=== PATIENT | female | born 1990 | race Caucasian/White ===

== ENCOUNTER → 2017-09-09 | Outpatient (CLI) | payer OTHER ==
[~2017-09-09] MED LIST: CEPH500 PO; NAPR500; NAPR500 PO; OXYACE5T; PERM5TC TOP; SULTRIDS PO; TRAM50 PO
== END ==
LOC: LAB 11:18
DX: N76.0 Acute vaginitis (principal)
CPT/HCPCS: 87070; 87205

== ENCOUNTER → 2018-08-14 | Outpatient (CLI) | payer OTHER | LOC: LAB 09:30 → LAB SHORT 09:30 | DX: N76.0 Acute vaginitis (principal) | CPT/HCPCS: 87070; 87205 ==

== ENCOUNTER → 2018-11-28 | Outpatient (CLI) | payer OTHER | LOC: LAB SHORT 17:17 → LAB 17:17 | DX: N89.8 Other specified noninflammatory disorders of vagina (principal) | CPT/HCPCS: 87070; 87205 ==

== ENCOUNTER 2019-06-14 08:59 | Inpatient (IN) | payer OTHER ==
[~2019-06-14] VITALS: Ht 157.5 cm; Wt 88.7 kg
[2019-06-14 09:58] LABS: BASOPHILS ABSOLUTE AUTO 0.04 K/mm3 (0.00-0.23); BASOPHILS PERCENT AUTO 0 % (0-2); EOSINOPHILS PERCENT AUTO 1 % (0-6); Hematocrit 42.4 % (33.0-51.0); Hemoglobin 13.3 g/dL (11.5-16.0); IMMATURE GRAN ABSOLUTE AUTO 0.04 K/mm3 (0.00-0.10); IMMATURE GRAN PERCENT AUTO 0 % (0-1); LYMPHOCYTES ABSOLUTE AUTO 1.44 K/mm3 (0.84-5.20); LYMPHOCYTES PERCENT AUTO 11 % (21-46); MONOCYTES ABSOLUTE AUTO 0.93 K/mm3 (0.16-1.47); MONOCYTES PERCENT AUTO 7 % (4-13); Mean Corpuscular HGB 26.7 pg (26.0-34.0); Mean Corpuscular HGB Conc 31.4 g/dL (31.5-36.5); Mean Corpuscular Volume 85 fL (80-100); Mean Platelet Volume 10.4 fL (9.1-12.4); NEUTROPHILS ABSOLUTE AUTO 10.71 K/mm3 (1.96-9.15); NEUTROPHILS PERCENT AUTO 81 % (41-73); Platelet Count 252 K/mm3 (150-400); RDW Coefficient Variation 14.9 % (11.7-14.2); RDW Standard Deviation 45.8 fL (35.1-46.3); Red Blood Cell Count 4.98 M/mm3 (3.80-5.20); White Blood Cell Count 13.26 K/mm3 (4.00-11.30)
[2019-06-14 10:14] LABS: Alanine Aminotransfer (ALT/SGP 19 U/L (12-78); Albumin, Blood 3.3 g/dL (3.4-5.0); Albumin/Globulin Ratio 0.9 (0.8-1.8); Alk Phos 74 U/L (50-136); Anion Gap 6 mmol/L (6-16); Aspartate Aminotrans (AST/SGOT 12 U/L (12-37); Bilirubin, Total 0.6 mg/dL (0.1-1.0); Blood Urea Nitrogen 7 mg/dL (8-24); Bun/Creatinine Ratio 9.3 (12.0-20.0); CO2, Blood 26 mmol/L (21-32); Calcium, Blood 9.2 mg/dL (8.5-10.1); Chloride, Blood 108 mmol/L (98-108); Creatinine, Blood 0.75 mg/dL (0.40-1.00); Globulin, Blood 3.8 g/dL (2.2-4.0); Glomerular Filtration Rate >60 (60-); Glucose, Blood 92 mg/dL (70-99); Potassium, Blood 3.5 mmol/L (3.5-5.5); Sodium, Blood 140 mmol/L (136-145); Total Protein, Blood 7.1 g/dL (6.4-8.2)
[2019-06-14 10:22] LABS: Appearance, Urine Cloudy (Clear); Bilirubin, Urine Neg (Neg); Blood, Urine 5+ (Neg); Color, Urine Yellow (P-Yellow); Glucose Qualitative, Urine Neg (Neg); Ketones, Urine Neg (Neg); Leukocyte Esterase, Urine 3+ (Neg); Nitrite, Urine Pos (Neg); Protein, Urine 3+ (Neg); Urobilinogen, Urine NORM (Normal)
[2019-06-14 10:42] LABS: White Blood Cells, Urine TNTC /hpf (0-5)
[2019-06-14 10:43] LABS: Bacteria Many /hpf; Squamous Epithelial Cells Few /hpf (Few)
--- NOTE | 2019-06-14 14:29 | NUR ---
RECIEVED TELEPHONE REPORT FROM ED RN SINDHU. PER REPORT PT ALERT,ORIENTED AND INDEPENDENT. 28 YO FULL CODE WITH KIDNEY INFECTION. ABX GIVEN IN THE ED, THIRD BAG OF IVF INFUSING AT THIS TIME. AWAITING PT ARRIVAL ON MED FLOOR.
--- NOTE | 2019-06-14 15:00 | NUR ---
PT ARRIVED ON MED FLOOR WITH 1L NS. PT ALERT AND TALKING WITH STAFF RATES PAIN AT 1/10 AT THIS TIME. PER REPORT FROM ED RN SINDHU THIS IS THE THIRD LITER OF IVF PT WILL RECIEVE. NO S&S OF DISTRESS NOTED AT THIS TIME WILL CTM.
--- NOTE | 2019-06-14 18:04 | NUR ---
1730- ON ROUNDS PT WAS COMFORTABLE AND SLEEPING UNTIL THIS POINT. PT AWOKE WHEN STAFF ENTERED THE ROOM, BEGAN SHIVERING AND MOANING. FULL SET OF VITALS WERE OBTAINED SCORING A 6 ON THE VEWS SYSTEM. CALLED DR MONZON, PT HR 124, BP79/66, TEMP 102.8, PAIN RATED AT 6/10. NEW ORDERS RECIEVED FOR 1L FLUID BOLUS, OT DOSE OF TORADOL, INCREASED DAILY ABX DOSE, TYLENOL WAS GIVEN AND MAINTENENCE FLUIDS WERE INCREASED TO 150ML/HR. FIELD ACCOUNT DIRECTOR MEGAN NOTIFIED. VITALS RECHECK WILL BE DONE NOW.
--- NOTE | 2019-06-14 19:35 | NUR ---
SHIFT SUMMARY- PT RESP RATE ELEVATED, TEMP 103, PULSE 110. SPOKE TO DR MONZON ABOUT POSSIBLE TRANSFER TO PCU, PT STILL HAD HALF A LITER OF HER FLUID BOLUS TO GO. MEDICATED WITH TYLENOL AND IBUPROFEN WELL IV TORADOL. PT STATED THE PAIN IS BACK DOWN TO A 1/10 AT THIS TIME. BEDSIDE REPORT COMPLETED. AFTER BEDSIDE REPORT ANOTHER CARE ROUNDING WAS DONE. PT SATED SHE WAS FEELING "SO HOT", ALL CLOTHING HAD BEEN REMOVED AT THIS POINT EXCEPT FOR THE GOWN AND A SHEET. ROOM TEMP WAS DOWN WELL. PLACED A COOL CLOTH ON THE PT HEAD AND PLACED ICE PACKS IN HER ARMPITS. SHORTLY AFTER THAT THE PT NEEDED TO GET UP TO USE THE BATHROOM. ACADEMIC REGISTRAR VITALS DONE AFTER THIS.
--- NOTE | 2019-06-14 19:45 | NUR ---
SPOKE TO DR MONZON SEVERAL TIMES T/O THE END OF THE SHIFT WHEN PT VEWS SCORES WERE 5 6 AND 7. AWARE INTERVENTIONS HAVE BEEN IMPLEMENTED. WANTS STAFF TO CONTINUE TO MONITOR REQUESTED TRANSFER TO PCU NO ORDER AT THIS TIME. PT RESP RATE HAS REDUCED TO 16 BPM TEMP IS DOWN TO 99.4 WITH ICE PACKS IN THE ARM PITS AND COOL CLOTH ON THE FOREHEAD. PT SAID SHE HAD A SHARP PAIN IN HER FLANK WHEN SHE GOT UP TO THE BATHROOM. CONCERN THAT THE PT WILL DECLINE NOW THAT FLUID BOLUS IS COMPLETE WHEN THE TORADOL, TYLENOL AND IBUPROFEN WEAR OFF. PASSED ON TO NIGHT RN. SPOKE TO NIGHT CHARGE PT HAS AN INCREASED NEED FOR MONITORING, SAUSAGE GRINDER AWARE.
--- NOTE | 2019-06-14 20:22 | NUR ---
REPORT TO DR JARA ABOUT PATIENT CHANGE IN CONDITION PER DAY RN (SEE NOTE). VIEW SCORES DOWN FROM SEVEN TO ONE. PATIENT HAS NS INFUSING AT 150 mL/HR. DR JARA REPORTS SHE WILL SEE PATIENT IF BP DECLINES AGAIN. VITALS TAKEN EVER HALF TO ONE HOUR. WILL CONTINUE TO MONITOR.
--- NOTE | 2019-06-14 20:40 | NUR ---
HOSPITALIST DR JARA PRESENT IN ROOM AND NEW SET OF VITALS TAKEN. CHARGE NURSE AND PROCEDURE NURSE PRESENT. DR JARA REPORTS TO TRANSFER PATIENT TO PCU. CHARGE NURSE WILL REPORT WHEN PCU BED AVAILABLE.
--- NOTE | 2019-06-14 21:24 | NUR ---
PATIENT TRANSFER TO PCU 14. REPORTS GIVEN TO JOSE BLAIR.
[2019-06-15 04:07] LABS: BASOPHILS ABSOLUTE AUTO 0.03 K/mm3 (0.00-0.23); BASOPHILS PERCENT AUTO 0 % (0-2); EOSINOPHILS ABSOLUTE AUTO 0.25 K/mm3 (0.00-0.68); EOSINOPHILS PERCENT AUTO 2 % (0-6); Hematocrit 33.9 % (33.0-51.0); Hemoglobin 10.6 g/dL (11.5-16.0); IMMATURE GRAN ABSOLUTE AUTO 0.05 K/mm3 (0.00-0.10); IMMATURE GRAN PERCENT AUTO 1 % (0-1); LYMPHOCYTES ABSOLUTE AUTO 0.95 K/mm3 (0.84-5.20); LYMPHOCYTES PERCENT AUTO 9 % (21-46); MONOCYTES ABSOLUTE AUTO 0.81 K/mm3 (0.16-1.47); MONOCYTES PERCENT AUTO 8 % (4-13); Mean Corpuscular HGB 26.8 pg (26.0-34.0); Mean Corpuscular HGB Conc 31.3 g/dL (31.5-36.5); Mean Corpuscular Volume 86 fL (80-100); Mean Platelet Volume 10.8 fL (9.1-12.4); NEUTROPHILS PERCENT AUTO 80 % (41-73); Platelet Count 202 K/mm3 (150-400); RDW Coefficient Variation 14.9 % (11.7-14.2); Red Blood Cell Count 3.96 M/mm3 (3.80-5.20); White Blood Cell Count 10.39 K/mm3 (4.00-11.30)
[2019-06-15 04:22] LABS: Anion Gap 4 mmol/L (6-16); Blood Urea Nitrogen 7 mg/dL (8-24); Bun/Creatinine Ratio 11.5 (12.0-20.0); CO2, Blood 23 mmol/L (21-32); Calcium, Blood 8.1 mg/dL (8.5-10.1); Chloride, Blood 115 mmol/L (98-108); Creatinine, Blood 0.61 mg/dL (0.40-1.00); Glomerular Filtration Rate >60 (60-); Glucose, Blood 112 mg/dL (70-99); Potassium, Blood 3.8 mmol/L (3.5-5.5); Sodium, Blood 142 mmol/L (136-145)
--- NOTE | 2019-06-15 07:45 | NUR ---
SHIFT SUMMARY ASSUMED CARE OF PT AT AROUND 2000 HOURS, PT AWAKE AND ALERT IN BED W/ FRIEND AT BEDSIDE. MEDICATED AND TREATED PER MD ORDER AND UNIT PROTOCOL, TREATED PT'S PAIN PER EMAR AND NO OTHER ISSUES. PT WAS TIRED AND SLEPT MOST OF THE SHIFT, INDEPENDENT OF ADL'S. PASSED CARE AND REPORT TO ONCOMING SHIFT AT 0700, PT'S BED LOW AND LOCKED, CALL LIGHT W/IN REACH, PT'S FRIEND AGAIN AT BEDSIDE.
[2019-06-15 16:01] LABS: U Amphetamine Screen Not Detected; U Barbituate Screen Not Detected; U Benzodiazapine Screen Not Detected; U Buprenorphine Screen Not Detected; U Cannabinoids Screen DETECTED; U Cocaine Screen Not Detected; U Methadone Screen Not Detected; U Methamphetamine Screen Not Detected; U Opiates Screen Not Detected; U Oxycodone Screen Not Detected; U Phencyclidine Screen Not Detected; U Propoxyphene Screen Not Detected
--- NOTE | 2019-06-15 16:59 | NUR ---
PATIENT IS ALERT AND ORIENTED AND COOPERATIVE WITH CARE. SHE COMPLAINS OF ABDOMINAL AND BILATERAL FLANK PAIN, THIS IS TREATED WITH A HEATING PAD, REST, TRAMADOL AND TORADOL. SHE IS RECIEVING IV ANTIBIOTICS. NS AT 75 MLS/HR. SHE HAS A POOR APPETITE. SHE HAD A FEVER OF 100.8 THIS MORNING, TYLENOL WAS GIVEN. SHE IS INDEPENDENT IN HER ROOM. WILL CONTINUE TO MONITOR.
[2019-06-16 03:42] LABS: Hematocrit 31.1 % (33.0-51.0); Hemoglobin 9.8 g/dL (11.5-16.0); Mean Corpuscular HGB Conc 31.5 g/dL (31.5-36.5); Mean Corpuscular Volume 86 fL (80-100); Mean Platelet Volume 10.8 fL (9.1-12.4); Platelet Count 189 K/mm3 (150-400); RDW Coefficient Variation 14.9 % (11.7-14.2); RDW Standard Deviation 46.6 fL (35.1-46.3); Red Blood Cell Count 3.63 M/mm3 (3.80-5.20); White Blood Cell Count 9.25 K/mm3 (4.00-11.30)
[2019-06-16 03:57] LABS: Albumin, Blood 2.1 g/dL (3.4-5.0); Anion Gap 3 mmol/L (6-16); Blood Urea Nitrogen 6 mg/dL (8-24); Bun/Creatinine Ratio 10.9 (12.0-20.0); CO2, Blood 24 mmol/L (21-32); Calcium, Blood 7.9 mg/dL (8.5-10.1); Chloride, Blood 115 mmol/L (98-108); Creatinine, Blood 0.55 mg/dL (0.40-1.00); Glomerular Filtration Rate >60 (60-); Glucose, Blood 94 mg/dL (70-99); Phosphorus, Blood 2.1 mg/dL (2.5-4.9); Potassium, Blood 3.8 mmol/L (3.5-5.5); Sodium, Blood 142 mmol/L (136-145)
--- NOTE | 2019-06-16 07:44 | NUR ---
SHIFT SUMMARY ASSUMED CARE OF PT AT 1900 HRS, PT AWAKE AND RESTING IN BED, BOYFRIEND AT BEDSIDE. MEDICATED AND TREATED PT PER MD ORDER AND UNIT PROTOCOL, INCLUDING REQUESTED PAIN MEDICATION AROUND MIDNIGHT WHICH PROVIDED ADEQUATE RELIEF, PER PT REPORT. OTHERWISE NO ISSUES. PT IS INDEPENDENT OF ADL'S, COMPLIANT W/ INTERVENTIONS, AND RESTED IN BED W/ ROOM LIGHTS OFF THE MAJORITY OF THE SHIFT. PASSED CARE AND REPORT TO ONCOMING SHIFT W/ PT'S BED LOCKED AND LOW, HER CALL LIGHT W/IN REACH, AND NO ISSUES.
--- NOTE | 2019-06-16 08:00 | NUR ---
pt pleasant coop a/o. states pain flank/abd. 02/28, but wants down to 1. med per emar. doesnt want tramadol. h/r reg, no murmer noted. per tele. nsr at 93 lungs clear, resp easy, unlabored. on r.a. bt x4 last bm last nite small. request some asst. brown cow given. voids per bathroom. independant in room. bed in low position, call lite in reach. calls approp
--- NOTE | 2019-06-16 16:14 | NUR ---
report called to james miller. medical floor.
--- NOTE | 2019-06-16 18:36 | NUR ---
SHIFT SUMMARY PATIENT IS PLEASANT. NO ACUTE CONCERNS. SHE IS INDEPENDENT. PAIN MANAGEMENT.
[2019-06-17 04:03] LABS: BASOPHILS ABSOLUTE AUTO 0.02 K/mm3 (0.00-0.23); BASOPHILS PERCENT AUTO 0 % (0-2); EOSINOPHILS ABSOLUTE AUTO 0.33 K/mm3 (0.00-0.68); EOSINOPHILS PERCENT AUTO 4 % (0-6); Hematocrit 31.5 % (33.0-51.0); IMMATURE GRAN ABSOLUTE AUTO 0.04 K/mm3 (0.00-0.10); IMMATURE GRAN PERCENT AUTO 1 % (0-1); LYMPHOCYTES ABSOLUTE AUTO 1.71 K/mm3 (0.84-5.20); LYMPHOCYTES PERCENT AUTO 20 % (21-46); MONOCYTES ABSOLUTE AUTO 0.82 K/mm3 (0.16-1.47); MONOCYTES PERCENT AUTO 9 % (4-13); Mean Corpuscular HGB 26.5 pg (26.0-34.0); Mean Corpuscular HGB Conc 31.7 g/dL (31.5-36.5); Mean Corpuscular Volume 83 fL (80-100); Mean Platelet Volume 10.9 fL (9.1-12.4); NEUTROPHILS ABSOLUTE AUTO 5.82 K/mm3 (1.96-9.15); NEUTROPHILS PERCENT AUTO 67 % (41-73); Platelet Count 203 K/mm3 (150-400); RDW Coefficient Variation 14.8 % (11.7-14.2); RDW Standard Deviation 45.4 fL (35.1-46.3); Red Blood Cell Count 3.78 M/mm3 (3.80-5.20); White Blood Cell Count 8.74 K/mm3 (4.00-11.30)
[2019-06-17 04:20] LABS: Albumin, Blood 2.1 g/dL (3.4-5.0); Anion Gap 4 mmol/L (6-16); Blood Urea Nitrogen 10 mg/dL (8-24); Bun/Creatinine Ratio 18.1 (12.0-20.0); CO2, Blood 24 mmol/L (21-32); Calcium, Blood 8.1 mg/dL (8.5-10.1); Chloride, Blood 115 mmol/L (98-108); Creatinine, Blood 0.55 mg/dL (0.40-1.00); Glomerular Filtration Rate >60 (60-); Glucose, Blood 97 mg/dL (70-99); Magnesium, Blood 1.7 mg/dL (1.6-2.4); Phosphorus, Blood 2.4 mg/dL (2.5-4.9); Potassium, Blood 3.9 mmol/L (3.5-5.5); Sodium, Blood 143 mmol/L (136-145)
--- NOTE | 2019-06-17 04:25 | NUR ---
SHIFT SUMMARY: A/OX3. MAKING NEEDS KNOWN. UP INDEPENDENTLY IN ROOM. REPORTS PAIN IN B FLANKS AND LATER IN THE SHIFT PAIN RADIATING TO UPPER ABDOMENT. PAIN RESPONDS WELL TO PRN ANALGESICS. DENIES DYSURIA. VSS. SLEEPING QUIETLY AT THIS TIME. BED LOW, CALL LIGHT IN REACH.
[2019-06-17] MEDS ORDERED: ACET325 PO (10:36)
[2019-06-17] MEDS ORDERED: AMOCLA875 PO (10:36)
[2019-06-17] MEDS ORDERED: Culturelle1 CAP PO (10:38)
[2019-06-17] MEDS ORDERED: ONDA4ODT MM (10:38)
[2019-06-17] MEDS ORDERED: NAPR500 PO (10:38)
[2019-06-17] MEDS ORDERED: TRAM50 PO (10:39)
== END 2019-06-17 11:15 | disposition home or self-care (01) | DRG 872 ==
LOC: ER 08:59 → MEDS 09:00 → ER 14:32 → PCU 14:32 → MEDS 06-16 16:45 → ENPENDDIS 06-17 10:27 → MEDS 06-17 11:15
PROVIDERS: Emergency Medicine; Internal Medicine; Nurse Practitioner Acute Care; ADMIT Internal Medicine
DX: A41.51 Sepsis due to Escherichia coli [E. coli] (principal); N10 Acute pyelonephritis; K59.00 Constipation, unspecified
CPT/HCPCS: 36415; 76770; 80048; 80053; 80069; 81001; 81025; 83605; 83690; 83735; 85025; 85027; 87040; 87077; 87086; 87186; 94761; 96361; 96365; 96376; 99284; A9270; G0378; J0696; J1170; J1885; J2765; J7030

== ENCOUNTER → 2019-07-30 | Outpatient (CLI) | payer OTHER ==
[~2019-07-30] MED LIST changes: +ACET325 PO; +AMOCLA875 PO; +Culturelle1 CAP PO; +ONDA4ODT MM
[2019-07-30 14:05] LABS: Bilirubin, Urine Neg (Neg); Blood, Urine Neg (Neg); Glucose Qualitative, Urine Neg (Neg); Ketones, Urine Neg (Neg); Leukocyte Esterase, Urine Neg (Neg); Nitrite, Urine Neg (Neg); Protein, Urine Neg (Neg); Specific Gravity, Urine 1.015 (1.003-1.022); Urobilinogen, Urine NORM (Normal)
[2019-07-30 14:15] LABS: Appearance, Urine Clear (Clear); Color, Urine Yellow (P-Yellow)
== END | disposition home or self-care (01) ==
LOC: LAB SHORT 12:00 → LAB UCHC 12:00
DX: R53.83 Other fatigue (principal)
CPT/HCPCS: 81003

== ENCOUNTER 2020-09-20 09:28 | Emergency (ER) | payer OTHER ==
[~2020-09-20] VITALS: Ht 157.5 cm; Wt 77.1 kg
[2020-09-20] MEDS ORDERED: Budeprion Xl300 MG PO (09:59)
[2020-09-20 10:43] LABS: BASOPHILS ABSOLUTE AUTO 0.06 K/mm3 (0.00-0.23); BASOPHILS PERCENT AUTO 1 % (0-2); EOSINOPHILS ABSOLUTE AUTO 0.26 K/mm3 (0.00-0.68); EOSINOPHILS PERCENT AUTO 4 % (0-6); Hemoglobin 12.5 g/dL (11.5-16.0); IMMATURE GRAN ABSOLUTE AUTO 0.01 K/mm3 (0.00-0.10); IMMATURE GRAN PERCENT AUTO 0 % (0-1); LYMPHOCYTES ABSOLUTE AUTO 2.47 K/mm3 (0.84-5.20); LYMPHOCYTES PERCENT AUTO 41 % (21-46); MONOCYTES ABSOLUTE AUTO 0.52 K/mm3 (0.16-1.47); MONOCYTES PERCENT AUTO 9 % (4-13); Mean Corpuscular HGB Conc 30.5 g/dL (31.5-36.5); Mean Corpuscular Volume 79 fL (80-100); Mean Platelet Volume 10.1 fL (9.1-12.4); NEUTROPHILS ABSOLUTE AUTO 2.69 K/mm3 (1.96-9.15); NEUTROPHILS PERCENT AUTO 45 % (41-73); Platelet Count 248 K/mm3 (150-400); RDW Coefficient Variation 16.6 % (11.7-14.2); RDW Standard Deviation 46.9 fL (35.1-46.3); Red Blood Cell Count 5.21 M/mm3 (3.80-5.20); White Blood Cell Count 6.01 K/mm3 (4.00-11.30)
[2020-09-20 10:46] LABS: Source, Urine Voided
[2020-09-20 10:50] LABS: Appearance, Urine Clear (Clear); Bilirubin, Urine Neg (Neg); Blood, Urine 5+ (Neg); Color, Urine Yellow (P-Yellow); Glucose Qualitative, Urine Neg (Neg); Ketones, Urine 1+ (Neg); Leukocyte Esterase, Urine 1+ (Neg); Nitrite, Urine Neg (Neg); Protein, Urine 1+ (Neg); Urobilinogen, Urine NORM (Normal)
[2020-09-20 11:01] LABS: International Normalized Ratio 1.01; Prothrombin Time Results 10.8 Sec (9.7-11.5)
[2020-09-20 11:02] LABS: Alanine Aminotransfer (ALT/SGP 20 U/L (12-78); Albumin, Blood 3.6 g/dL (3.4-5.0); Alk Phos 65 U/L (50-136); Anion Gap 7 mmol/L (6-16); Aspartate Aminotrans (AST/SGOT 10 U/L (12-37); Bilirubin, Total 0.4 mg/dL (0.1-1.0); Blood Urea Nitrogen 9 mg/dL (8-24); CO2, Blood 23 mmol/L (21-32); Chloride, Blood 111 mmol/L (98-108); Creatinine, Blood 0.69 mg/dL (0.40-1.00); Globulin, Blood 3.6 g/dL (2.2-4.0); Glomerular Filtration Rate >60 (60-); Glucose, Blood 98 mg/dL (70-99); Sodium, Blood 141 mmol/L (136-145); Total Protein, Blood 7.2 g/dL (6.4-8.2); Troponin I <0.015 ng/mL (0.000-0.040)
[2020-09-20 11:14] LABS: Bacteria Mod /hpf; Squamous Epithelial Cells Few /hpf (Few)
[2020-09-20] MEDS ORDERED: ACYC400 PO (16:07)
[2020-09-20] MEDS ORDERED: Keflex500 MG PO (17:33)
[2020-09-20] MEDS ORDERED: IBUP600 PO (17:33)
== END 2020-09-20 18:37 | disposition home or self-care (01) ==
LOC: ER 09:28
PROVIDERS: Emergency Medicine
DX: R20.0 Anesthesia of skin (principal); R51.9 Headache, unspecified; N39.0 Urinary tract infection, site not specified; Z79.899 Other long term (current) drug therapy
CPT/HCPCS: 36415; 70496; 70498; 70551; 71045; 72141; 80053; 81001; 81025; 84484; 85025; 85610; 85730; 87086; 93005; 93010; 96361; 96365; 96375; 99284-25; J0696; J1200; J1885; J2765; J3010; J7030; Q9967

== ENCOUNTER 2020-09-24 10:10 | Emergency (ER) | payer OTHER ==
[~2020-09-24] VITALS: Ht 167.6 cm; Wt 61.2 kg
[~2020-09-24 10:10] MED LIST changes: +ACYC400 PO; +Budeprion Xl300 MG PO; +IBUP600 PO; +Keflex500 MG PO
[2020-09-24 11:03] LABS: BASOPHILS ABSOLUTE AUTO 0.05 K/mm3 (0.00-0.23); BASOPHILS PERCENT AUTO 1 % (0-2); EOSINOPHILS ABSOLUTE AUTO 0.41 K/mm3 (0.00-0.68); EOSINOPHILS PERCENT AUTO 7 % (0-6); Hematocrit 39.5 % (33.0-51.0); Hemoglobin 11.9 g/dL (11.5-16.0); IMMATURE GRAN ABSOLUTE AUTO 0.01 K/mm3 (0.00-0.10); IMMATURE GRAN PERCENT AUTO 0 % (0-1); LYMPHOCYTES ABSOLUTE AUTO 1.83 K/mm3 (0.84-5.20); LYMPHOCYTES PERCENT AUTO 30 % (21-46); MONOCYTES PERCENT AUTO 8 % (4-13); Mean Corpuscular HGB 23.7 pg (26.0-34.0); Mean Corpuscular HGB Conc 30.1 g/dL (31.5-36.5); Mean Corpuscular Volume 79 fL (80-100); Mean Platelet Volume 10.4 fL (9.1-12.4); NEUTROPHILS ABSOLUTE AUTO 3.38 K/mm3 (1.96-9.15); NEUTROPHILS PERCENT AUTO 55 % (41-73); Platelet Count 232 K/mm3 (150-400); RDW Coefficient Variation 16.1 % (11.7-14.2); RDW Standard Deviation 45.7 fL (35.1-46.3); Red Blood Cell Count 5.02 M/mm3 (3.80-5.20); White Blood Cell Count 6.18 K/mm3 (4.00-11.30)
[2020-09-24 11:07] LABS: Source, Urine Clean Catch
[2020-09-24 11:14] LABS: Alanine Aminotransfer (ALT/SGP 17 U/L (12-78); Albumin, Blood 3.5 g/dL (3.4-5.0); Albumin/Globulin Ratio 1.1 (0.8-1.8); Alk Phos 63 U/L (50-136); Anion Gap 7 mmol/L (6-16); Aspartate Aminotrans (AST/SGOT 14 U/L (12-37); Bilirubin, Total 0.5 mg/dL (0.1-1.0); Blood Urea Nitrogen 7 mg/dL (8-24); Bun/Creatinine Ratio 10.4 (12.0-20.0); CO2, Blood 26 mmol/L (21-32); Calcium, Blood 8.7 mg/dL (8.5-10.1); Chloride, Blood 110 mmol/L (98-108); Creatinine, Blood 0.67 mg/dL (0.40-1.00); Globulin, Blood 3.3 g/dL (2.2-4.0); Glomerular Filtration Rate >60 (60-); Glucose, Blood 88 mg/dL (70-99); Potassium, Blood 3.9 mmol/L (3.5-5.5); Sodium, Blood 143 mmol/L (136-145); Total Protein, Blood 6.8 g/dL (6.4-8.2)
[2020-09-24 11:18] LABS: Bilirubin, Urine Neg (Neg); Blood, Urine 1+ (Neg); Glucose Qualitative, Urine Neg (Neg); Ketones, Urine 1+ (Neg); Leukocyte Esterase, Urine Neg (Neg); Nitrite, Urine Neg (Neg); Protein, Urine Neg (Neg); Specific Gravity, Urine 1.025 (1.003-1.022); Urobilinogen, Urine NORM (Normal)
[2020-09-24 11:53] LABS: Appearance, Urine Hazy (Clear); Color, Urine Yellow (P-Yellow)
[2020-09-24 11:55] LABS: Bacteria Many /hpf; Mucus Mod (0-Heavy); Squamous Epithelial Cells Mod /hpf (Few); White Blood Cells, Urine 0-2 /hpf (0-5)
== END 2020-09-24 11:58 | disposition home or self-care (01) ==
LOC: ER 10:10
PROVIDERS: Physician Assistant
DX: N39.0 Urinary tract infection, site not specified (principal); Z79.899 Other long term (current) drug therapy; Z87.442 Personal history of urinary calculi; Z87.891 Personal history of nicotine dependence
CPT/HCPCS: 36415; 80053; 81001; 85025; 87086; 99283

== ENCOUNTER 2022-03-09 01:38 | Observation (INO) | payer OTHER ==
[~2022-03-09] VITALS: Ht 160 cm; Wt 54.4 kg
[~2022-03-09 01:38] MED LIST changes: +HALO5 PO
[2022-03-09 02:53] LABS: BASOPHILS ABSOLUTE AUTO 0.03 K/mm3 (0.00-0.23); BASOPHILS PERCENT AUTO 0 % (0-2); EOSINOPHILS ABSOLUTE AUTO 0.18 K/mm3 (0.00-0.68); EOSINOPHILS PERCENT AUTO 2 % (0-6); Hematocrit 35.7 % (33.0-51.0); Hemoglobin 12.2 g/dL (11.5-16.0); IMMATURE GRAN ABSOLUTE AUTO 0.02 K/mm3 (0.00-0.10); IMMATURE GRAN PERCENT AUTO 0 % (0-1); LYMPHOCYTES ABSOLUTE AUTO 2.14 K/mm3 (0.84-5.20); LYMPHOCYTES PERCENT AUTO 23 % (21-46); MONOCYTES ABSOLUTE AUTO 0.74 K/mm3 (0.16-1.47); MONOCYTES PERCENT AUTO 8 % (4-13); Mean Corpuscular HGB Conc 34.2 g/dL (31.5-36.5); Mean Corpuscular Volume 79 fL (80-100); Mean Platelet Volume 10.5 fL (9.1-12.4); NEUTROPHILS ABSOLUTE AUTO 6.25 K/mm3 (1.96-9.15); NEUTROPHILS PERCENT AUTO 67 % (41-73); Platelet Count 212 K/mm3 (150-400); RDW Coefficient Variation 13.2 % (11.7-14.2); RDW Standard Deviation 37.3 fL (35.1-46.3); Red Blood Cell Count 4.52 M/mm3 (3.80-5.20); White Blood Cell Count 9.36 K/mm3 (4.00-11.30)
[2022-03-09 03:18] LABS: Albumin, Blood 3.7 g/dL (3.4-5.0); Albumin/Globulin Ratio 1.2 (0.8-1.8); Bilirubin, Total 0.6 mg/dL (0.1-1.0); Bun/Creatinine Ratio 15.9 (12.0-20.0); Calcium, Blood 9.2 mg/dL (8.5-10.1); Creatinine, Blood 0.82 mg/dL (0.40-1.00); Potassium, Blood 3.2 mmol/L (3.5-5.5); Thyroid Stimulating Hormone 0.95 uIU/mL (0.360-4.800); Total Protein, Blood 6.7 g/dL (6.4-8.2)
[2022-03-09 03:32] LABS: Creatine Kinase MB 8.8 ng/mL (0.0-3.6); Creatine Kinase MB Index 1.3 (0.0-4.0)
[2022-03-10 07:22] LABS: Source, Urine Clean Catch
[2022-03-10 07:31] LABS: Appearance, Urine Turbid (Clear); Bilirubin, Urine Neg (Neg); Blood, Urine 5+ (Neg); Color, Urine Yellow (P-Yellow); Glucose Qualitative, Urine Neg (Neg); Ketones, Urine 2+ (Neg); Leukocyte Esterase, Urine 3+ (Neg); Nitrite, Urine Pos (Neg); Protein, Urine 2+ (Neg); Urobilinogen, Urine 1+ (Normal)
[2022-03-10 08:04] LABS: White Blood Cells, Urine TNTC /hpf (0-5)
[2022-03-10 08:05] LABS: Bacteria Many /hpf; Red Blood Cells, Urine TNTC /hpf (0-2); Squamous Epithelial Cells Many /hpf (Few)
[2022-03-10 09:27] LABS: U Amphetamine Screen Not Detected; U Barbituate Screen Not Detected; U Benzodiazapine Screen Not Detected; U Buprenorphine Screen Not Detected; U Cocaine Screen Not Detected; U Methadone Screen Not Detected; U Methamphetamine Screen DETECTED; U Opiates Screen Not Detected; U Oxycodone Screen Not Detected; U Phencyclidine Screen Not Detected; U Propoxyphene Screen Not Detected
[2022-03-10 09:29] LABS: U Cannabinoids Screen DETECTED
== END 2022-03-11 14:54 ==
LOC: ER 01:38 → EOR 01:39
PROVIDERS: ADMIT Emergency Medicine
DX: F20.9 Schizophrenia, unspecified (principal); F90.9 Attention-deficit hyperactivity disorder, unspecified type; F95.2 Tourette's disorder; Z88.5 Allergy status to narcotic agent; Z87.891 Personal history of nicotine dependence; F15.10 Other stimulant abuse, uncomplicated; F12.10 Cannabis abuse, uncomplicated
CPT/HCPCS: 36415; 80053; 81001; 81025; 82550; 82553; 84443; 85025; 87077; 87086; 87186; 93005; 93010; 96372; 99285-25; A9270; G0378; J1630; J2250